=== PATIENT | female | born 1960 | race Two or more races ===

== ENCOUNTER 2025-09-02 07:44 | Emergency (ER) | payer BC ==
[~2025-09-02] VITALS: Ht 157.5 cm; Wt 114.8 kg
[2025-09-02 07:52] VITALS: TEMP 98.1
[2025-09-02] MEDS ORDERED: BACLOFEN (10 MG) 10 MG TABLET ONE (08:34)
[2025-09-02] MEDS ORDERED: KETOROLAC TROMETHAMINE INJ 30 MG/ML VIAL ONE (08:34)
[2025-09-02 08:38] LABS: PLATELET COUNT (AUTO) 214 K/uL (150-450); RED BLOOD CELL COUNT(AUTO) 4.70 MIL/uL (4.0-5.2); RED CELL DISTRIBUTION WIDTH 13.2 % (11.5-15.0); WHITE BLOOD COUNT (AUTO) 3.7 K/uL (4.3-11.0)
[2025-09-02] MEDS: KETOROLAC TROMETHAMINE INJ 30 MG/ML VIAL IV ONE (08:40)
[2025-09-02] MEDS: BACLOFEN (10 MG) 10 MG TABLET PO ONE (08:41)
[2025-09-02 08:49] LABS: CALCIUM, SERUM 8.6 mg/dL (8.5-10.1); CREATININE 1.0 mg/dL (0.6-1.3); SODIUM SERUM 144.0 mmol/L (136-145); UREA NITROGEN, BLOOD 15.0 mg/dL (7-18)
[2025-09-02 08:51] LABS: INR 1.01 (0.91-1.10)
[2025-09-02 08:52] LABS: CREATINE KINASE, TOTAL 88.0 U/L (26-192)
[2025-09-02 08:59] LABS: NT-PRO BNP 54.0 pg/mL (0-125)
[2025-09-02] MEDS ORDERED: KETO10TA2 PO (10:13)
[2025-09-02] MEDS ORDERED: BACL10TA PO (10:13)
[2025-09-02 10:33] VITALS: BP 135/86; O2SAT 98
== END 2025-09-02 10:34 | disposition home or self-care (01) ==
LOC: ER 07:50
DX: M48.07 Spinal stenosis, lumbosacral region (principal); M79.605 Pain in left leg; R53.1 Weakness; R06.02 Shortness of breath; E03.9 Hypothyroidism, unspecified; E78.5 Hyperlipidemia, unspecified; I51.9 Heart disease, unspecified; Z79.899 Other long term (current) drug therapy; Z88.5 Allergy status to narcotic agent
CPT/HCPCS: 99285; 96374; 72131; 93971; 85025; 80048; 82550; 36415; 85730; 83880; J1885